=== PATIENT | female | born 1995 | race Caucasian/White ===

== ENCOUNTER 2017-05-14 07:47 | Inpatient (IN) | payer OTHER ==
[2017-05-14] MEDS ORDERED: TERBUTALINE 1 MG/ML INJ SC (09:00)
[2017-05-14] MEDS ORDERED: LACTATED RINGER'S 1,000 ML IV* (09:00)
[2017-05-14] MEDS ORDERED: MAGNESIUM SULFATE 4 GM/100 ML 100 ML (09:49)
[2017-05-14] MEDS ORDERED: ACETAMINOPHEN 325 MG TAB PO (10:00)
[2017-05-14] MEDS: MAGNESIUM SULFATE 4 GM/100 ML 100 ML IV (10:25)
[2017-05-14] MEDS: MAGNESIUM SULFATE 20 GM/500 ML 500 ML IV ×2 (10:26→21:49)
[2017-05-14] MEDS: BETAMET NA PHOS/AC(6 MG/ML) 5ML INJ IM (10:27)
[2017-05-14] MEDS: LACTATED RINGER'S 1,000 ML IV* ×2 (10:39→21:50)
[2017-05-14 11:42] LABS: ADD MAN DIFF? NO
[2017-05-14 11:53] LABS: WHITE BLOOD COUNT 6.6 10^3/ul (4.8-10.8)
[2017-05-14 11:53] LABS: BASOPHILS % 0.3 % (0.0-2.0); EOSINOPHILS % 0.6 % (0.0-7.0); HEMATOCRIT 36.8 % (37.0-47.0); HEMOGLOBIN 12.4 g/dl (12.0-16.0); LYMPHOCYTES # 1.8 10^3/ul (0.8-2.9); LYMPHOCYTES % 26.8 % (15.0-51.0); MEAN CORPUSCULAR HEMOGLOBIN 29.2 pg (29.0-33.0); MEAN CORPUSCULAR HGB CONC 33.7 g/dl (32.0-37.0); MEAN CORPUSCULAR VOLUME 86.6 fl (82.0-101.0); MEAN PLATELET VOLUME 11.5 fl (7.4-10.4); MONOCYTE # 0.5 10^3/ul (0.3-0.9); MONOCYTES % 7.8 % (0.0-11.0); NEUTROPHIL # 4.2 10^3/ul (1.6-7.5); NEUTROPHILS % 64.2 % (39.0-77.0); PLATELET COUNT 212 10^3/UL (140-415); RED BLOOD COUNT 4.25 10^6/ul (4.20-5.40); RED CELL DISTRIBUTION WIDTH 12.3 % (11.5-14.5)
[2017-05-14 12:00] LABS: ALANINE AMINOTRANSFERASE 22 IU/L (13-69); ALBUMIN 3.8 g/dl (3.3-4.9); ALBUMIN/GLOBULIN RATIO 1.08; ALKALINE PHOSPHATASE 157 IU/L (42-121); ANION GAP 12 (8-16); ASPARTATE AMINO TRANSFERASE 19 IU/L (15-46); BILIRUBIN,INDIRECT 0.1 mg/dl (0-1.1); BILIRUBIN,TOTAL 0.1 mg/dl (0.2-1.3); BLOOD UREA NITROGEN 5 mg/dl (7-20); CALCIUM 9.1 mg/dl (8.4-10.2); CARBON DIOXIDE 24 mmol/L (21-31); CHLORIDE 107 mmol/L (97-110); CREATININE 0.47 mg/dl (0.44-1.00); GLUCOSE 67 mg/dl (70-220); POTASSIUM 3.8 mmol/L (3.5-5.1); SODIUM 139 mmol/L (135-144); TOTAL PROTEIN 7.3 g/dl (6.1-8.1)
[2017-05-14 12:09] LABS: INR 0.94; PROTIME 12.7 Sec (11.9-14.9)
[2017-05-14 12:10] LABS: PARTIAL THROMBOPLASTIN TIME 30.3 Sec (25.0-35.0)
[2017-05-14 12:40] LABS: HEPATITIS B SURFACE ANTIGEN NEGATIVE (NEGATIVE)
[2017-05-14 14:35] LABS: ADD UMIC YES; UR ASCORBIC ACID NEGATIVE (NEGATIVE); UR BILIRUBIN (Dip) NEGATIVE (NEGATIVE); UR BLOOD (Dip) 1+ mg/dL (NEGATIVE); UR CLARITY CLEAR (CLEAR); UR COLOR YELLOW (YELLOW); UR GLUCOSE (Dip) NEGATIVE (NEGATIVE); UR KETONES (Dip) 1+ mg/dL (NEGATIVE); UR LEUKOCYTE ESTERASE (Dip) TRACE Leu/ul (NEGATIVE); UR MUCUS FEW /HPF (NONE SEEN); UR NITRITE (Dip) NEGATIVE (NEGATIVE); UR RBC 0 /HPF (0-5); UR SPECIFIC GRAVITY (Dip) 1.017 (1.003-1.030); UR TOTAL PROTEIN (Dip) NEGATIVE (NEGATIVE); UR UROBILINOGEN (Dip) NEGATIVE (NEGATIVE); UR WBC 3 /HPF (0-5)
[2017-05-14 15:53] LABS: RAPID PLASMA REAGIN NONREACTIVE (NR)
[2017-05-14 18:38] LABS: MAGNESIUM 4.6 mg/dl (1.7-2.5)
[2017-05-15 01:29] LABS: MAGNESIUM 4.7 mg/dl (1.7-2.5)
[2017-05-15 08:15] LABS: MAGNESIUM 4.9 mg/dl (1.7-2.5)
[2017-05-15] MEDS: MAGNESIUM SULFATE 20 GM/500 ML 500 ML IV ×3 (08:33→21:25)
[2017-05-15] MEDS: LACTATED RINGER'S 1,000 ML IV* ×3 (08:35→21:25)
[2017-05-15] MEDS: BETAMET NA PHOS/AC(6 MG/ML) 5ML INJ IM (10:23)
[2017-05-15] MEDS: LACTATED RINGER'S 1,000 ML IV (16:44)
[2017-05-15 18:01] LABS: MAGNESIUM 4.1 mg/dl (1.7-2.5)
[2017-05-16 01:35] LABS: MAGNESIUM 3.6 mg/dl (1.7-2.5)
[2017-05-16 06:47] LABS: MAGNESIUM 3.6 mg/dl (1.7-2.5)
[2017-05-16] MEDS: LACTATED RINGER'S 1,000 ML IV (07:00)
[2017-05-16 12:55] LABS: MAGNESIUM 3.4 mg/dl (1.7-2.5)
[2017-05-16] MEDS: LACTATED RINGER'S 1,000 ML IV* (17:48)
[2017-05-17] MEDS: LACTATED RINGER'S 1,000 ML IV (03:53)
== END 2017-05-17 10:50 | disposition home or self-care (01) | DRG 782 ==
LOC: OBT 07:47 → L-D 07:48 → OBT 09:32 → L-D 09:25
DX: O26.873 Cervical shortening, third trimester (principal); O60.03 Preterm labor without delivery, third trimester; O76 Abnormality in fetal heart rate and rhythm complicating labor and delivery; Z3A.34 34 weeks gestation of pregnancy
CPT/HCPCS: 36415; 76817; 76818; 80053; 81001; 83735; 85025; 85610; 85730; 86592; 86850; 86900; 86901; 87081; 87086; 87340

== ENCOUNTER 2017-05-19 10:39 | Outpatient (CLI) | payer OTHER | END 2017-05-19 13:52 | disposition home or self-care (01) | LOC: OBT 10:39 → L-D 10:40 → OBT 13:52 | DX: O26.873 Cervical shortening, third trimester (principal); Z3A.35 35 weeks gestation of pregnancy | CPT/HCPCS: 76818 ==

== ENCOUNTER 2017-05-22 09:42 | Outpatient (CLI) | payer OTHER | END 2017-05-22 11:20 | disposition home or self-care (01) | LOC: OBT 09:42 → L-D 09:43 → OBT 11:20 | DX: O62.9 Abnormality of forces of labor, unspecified (principal); Z3A.36 36 weeks gestation of pregnancy | CPT/HCPCS: 76818 ==

== ENCOUNTER 2017-05-23 16:25 | Outpatient (CLI) | payer OTHER | END 2017-05-23 18:40 | disposition home or self-care (01) | LOC: OBT 16:25 → L-D 16:27 → OBT 18:40 | DX: O26.893 Other specified pregnancy related conditions, third trimester (principal); R10.2 Pelvic and perineal pain; R10.9 Unspecified abdominal pain; Z3A.36 36 weeks gestation of pregnancy | CPT/HCPCS: 76817; 76818 ==

== ENCOUNTER 2017-05-31 19:42 | Outpatient (CLI) | payer OTHER | END 2017-05-31 22:18 | disposition home or self-care (01) | LOC: OBT 19:42 → L-D 19:43 → OBT 22:18 | DX: O36.8130 Decreased fetal movements, third trimester, not applicable or unspecified (principal); Z3A.33 33 weeks gestation of pregnancy | CPT/HCPCS: 76818 ==

== ENCOUNTER 2017-06-16 21:45 | Inpatient (IN) | payer OTHER ==
[2017-06-16] MEDS ORDERED: LACTATED RINGER'S 1,000 ML IV (22:39)
[2017-06-16] MEDS ORDERED: METHYLERGONOVINE 0.2 MG INJ IM (23:00)
[2017-06-16] MEDS ORDERED: MISOPROSTOL 200 MCG TAB PR (23:00)
[2017-06-16] MEDS ORDERED: LIDOCAINE 1% (MPF) 30 ML INJ INJ (23:00)
[2017-06-16] MEDS ORDERED: HYDROCODONE/APAP (5/325) TAB PO (23:00)
[2017-06-16] MEDS ORDERED: OXYTOCIN 30 UNITS/LR 500 ML IV (23:00)
[2017-06-16] MEDS ORDERED: CARBOPROST 250 MCG INJ IM (23:00)
[2017-06-16] MEDS: LACTATED RINGER'S 1,000 ML IV (23:23)
[2017-06-16 23:27] LABS: ADD MAN DIFF? NO
[2017-06-16 23:30] LABS: WHITE BLOOD COUNT 8.6 10^3/ul (4.8-10.8)
[2017-06-16 23:30] LABS: BASOPHILS % 0.2 % (0.0-2.0); EOSINOPHILS % 0.6 % (0.0-7.0); HEMATOCRIT 37.3 % (37.0-47.0); HEMOGLOBIN 12.7 g/dl (12.0-16.0); LYMPHOCYTES % 33.7 % (15.0-51.0); MEAN CORPUSCULAR HEMOGLOBIN 28.9 pg (29.0-33.0); MEAN CORPUSCULAR VOLUME 84.8 fl (82.0-101.0); MEAN PLATELET VOLUME 10.8 fl (7.4-10.4); MONOCYTES % 8.6 % (0.0-11.0); NEUTROPHIL # 4.9 10^3/ul (1.6-7.5); NEUTROPHILS % 56.7 % (39.0-77.0); PLATELET COUNT 237 10^3/UL (140-415); RED CELL DISTRIBUTION WIDTH 13.2 % (11.5-14.5)
[2017-06-16 23:31] LABS: EOSINOPHILS # 0.1 10^3/ul (0.0-0.5); LYMPHOCYTES # 2.9 10^3/ul (0.8-2.9); MONOCYTE # 0.7 10^3/ul (0.3-0.9)
[2017-06-17 00:07] LABS: INR 0.86; PROTIME 11.8 Sec (11.9-14.9); PT RATIO 0.9
[2017-06-17 00:08] LABS: PARTIAL THROMBOPLASTIN TIME 28.8 Sec (25.0-35.0)
[2017-06-17] MEDS: LACTATED RINGER'S 1,000 ML IV ×2 (00:10→04:32)
[2017-06-17 00:22] LABS: HEPATITIS B SURFACE ANTIGEN NEGATIVE (NEGATIVE)
[2017-06-17] MEDS ORDERED: FENTAnyl 2MCG/ML-ROPIV 0.2% 100 ML (00:22)
[2017-06-17] MEDS ORDERED: DIPHENHYDRAMINE 50 MG INJ IV (01:00)
[2017-06-17] MEDS ORDERED: NALOXONE (0.4 MG/ML) INJ IV (01:00)
[2017-06-17] MEDS ORDERED: ONDANSETRON 4 MG INJ IV ×2 (01:00→15:00)
[2017-06-17] MEDS: FENTAnyl 2MCG/ML-ROPIV 0.2% 100 ML BAG EPI ×2 (04:32→10:38)
[2017-06-17] MEDS: OXYTOCIN 30 UNITS/LR 500 ML IV ×3 (11:46→16:50)
[2017-06-17] MEDS: IBUPROFEN 600 MG TAB PO ×3 (14:40→20:25)
[2017-06-17] MEDS: MINERAL OIL LIGHT 10 ML VIAL TOP (14:56)
[2017-06-17] MEDS ORDERED: HYDROCODONE/APAP (5/325) TAB PO ×2 (15:00)
[2017-06-17] MEDS ORDERED: DIBUCAINE 1% 30 GM OINT PR (15:00)
[2017-06-17] MEDS ORDERED: OXYCODONE/ASPIRIN (4.88/325) TAB PO ×2 (15:00)
[2017-06-17] MEDS ORDERED: ACETAMINOPHEN 325 MG TAB PO (15:00)
[2017-06-17] MEDS: BENZOCAINE 20% 56 ML SPRAY TOP (18:24)
[2017-06-17] MEDS: WITCH HAZEL/GLYCERIN PAD PR (18:25)
[2017-06-17] MEDS ORDERED: TERBUTALINE 1 MG/ML INJ SC (19:30)
[2017-06-17] MEDS: LANOLIN 7 GM TUBE TOP (19:51)
[2017-06-17] MEDS: SENNA/DOCUSATE NA (8.6MG/50MG) TAB PO (20:42)
[2017-06-17 23:14] LABS: RAPID PLASMA REAGIN NONREACTIVE (NR)
[2017-06-18] MEDS: IBUPROFEN 600 MG TAB PO ×4 (00:24→17:58)
[2017-06-18] MEDS: SENNA/DOCUSATE NA (8.6MG/50MG) TAB PO ×2 (09:57→21:21)
[2017-06-18 10:13] LABS: ADD MAN DIFF? NO
[2017-06-18 10:17] LABS: BASOPHILS % 0.2 % (0.0-2.0); EOSINOPHILS # 0.1 10^3/ul (0.0-0.5); EOSINOPHILS % 0.9 % (0.0-7.0); HEMATOCRIT 31.2 % (37.0-47.0); HEMOGLOBIN 10.4 g/dl (12.0-16.0); LYMPHOCYTES # 1.7 10^3/ul (0.8-2.9); LYMPHOCYTES % 16.5 % (15.0-51.0); MEAN CORPUSCULAR HEMOGLOBIN 28.7 pg (29.0-33.0); MEAN CORPUSCULAR HGB CONC 33.3 g/dl (32.0-37.0); MEAN CORPUSCULAR VOLUME 86.2 fl (82.0-101.0); MEAN PLATELET VOLUME 11.1 fl (7.4-10.4); MONOCYTE # 0.6 10^3/ul (0.3-0.9); MONOCYTES % 6.2 % (0.0-11.0); NEUTROPHIL # 7.6 10^3/ul (1.6-7.5); NEUTROPHILS % 75.7 % (39.0-77.0); PLATELET COUNT 178 10^3/UL (140-415); RED BLOOD COUNT 3.62 10^6/ul (4.20-5.40); RED CELL DISTRIBUTION WIDTH 13.7 % (11.5-14.5)
[2017-06-18 10:17] LABS: WHITE BLOOD COUNT 10.1 10^3/ul (4.8-10.8)
[2017-06-19] MEDS: IBUPROFEN 600 MG TAB PO ×4 (00:20→17:46)
[2017-06-19] MEDS: SENNA/DOCUSATE NA (8.6MG/50MG) TAB PO (09:00)
[2017-06-19] MEDS: MEASLES,MUMPS,RUBELLA VACCINE INJ SC* (09:00)
== END 2017-06-19 18:55 | disposition home or self-care (01) | DRG 775 ==
LOC: OBT 21:45 → PP1 06-17 14:23 → L-D 21:46 → OBT 22:08 → L-D 22:08
PROVIDERS: Obstetrics & Gynecology
PROC: 10E0XZZ Delivery of Products of Conception, External Approach (ICD-10-PCS; principal; 2017-06-17)
PROC: 0HQ9XZZ Repair Perineum Skin, External Approach (ICD-10-PCS; 2017-06-17)
PROC: 3E033VJ Introduction of Other Hormone into Peripheral Vein, Percutaneous Approach (ICD-10-PCS; 2017-06-17)
DX: O69.81X0 Labor and delivery complicated by cord around neck, without compression, not applicable or unspecified (principal); O70.0 First degree perineal laceration during delivery; Z3A.39 39 weeks gestation of pregnancy; Z37.0 Single live birth
CPT/HCPCS: 62319; 85025; 85610; 85730; 86592; 86885; 86900; 86901; 87340; 99464